=== PATIENT | male | born 1990 ===

== ENCOUNTER 2021-01-26 18:02 | Emergency (ER) | payer SELFPAY ==
[2021-01-26] MEDS ORDERED: SODIUM CHLORIDE 0.9% 1000 ML 1,000 ML IV ONE (18:26)
[2021-01-26] MEDS ORDERED: MORPHINE 4 MG/1 ML INJ IV ONE (18:26)
[2021-01-26] MEDS ORDERED: ONDANSETRON 4 MG/2 ML INJ IV ONE (18:26)
[2021-01-26] MEDS ORDERED: levETIRAcetam 1000 MG/NS 0.75% 1,000 MG/100 ML BAG IV ONE (18:27)
--- NOTE | 2021-01-26 18:32 | Emergency Department Report ---
ED General Adult HPI - General Stated complaint: SEIZURE Time Seen by Provider: 01/26/21 18:25 Source: patient - History of Present Illness Initial comments: Patient is 30 years old male with history of seizure on Keppra however he is out of his Keppra for the last 2 months. Patient brought to the emergency room initially for evaluation of single generalized tonic-clonic seizure. Upon arrival to the ER patient is alert, oriented x3 patient is complaining of right lower quadrant pain that started today. 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 Patient presented with diffuse rash. He stated that the rash started before the injection. - Related Data Allergies Allergy/AdvReac Type Severity Reaction Status Date / Time No Known Allergies Allergy Verified 01/26/21 18:42 ED Review of Systems ROS: Stated complaint: SEIZURE Other details as noted in HPI Comment: All other systems reviewed and negative Constitutional: denies: chills, fever Respiratory: denies: cough, shortness of breath, SOB with exertion, SOB at rest, wheezing Cardiovascular: denies: chest pain, palpitations Gastrointestinal: abdominal pain. denies: nausea, vomiting, diarrhea, con stipation, hematemesis, melena, hematochezia Musculoskeletal: denies: back pain Neurological: denies: headache, weakness, numbness, paresthesias, confusion, abnormal gait Psychiatric: anxiety. denies: auditory hallucinations, visual hallucinations, homicidal thoughts, suicidal thoughts ED Physical Exam - General General appearance: alert, in distress - Head Head exam: Present: atraumatic, normocephalic, normal inspection - Eye Eye exam: Present: normal appearance, PERRL - ENT ENT exam: Present: normal exam - Neck Neck exam: Present: normal inspection, full ROM. Absent: tenderness - Respiratory Respiratory exam: Present: normal lung sounds bilaterally - Cardiovascular Cardiovascular Exam: Present: tachycardia - GI/Abdominal GI/Abdominal exam: Present: soft, tenderness, normal bowel sounds. Absent: distended, guarding, rebound, rigid, organomegaly, mass, bruit, pulsatile mass, hernia - Extremities Exam Extremities exam: Present: full ROM, normal capillary refill. Absent: tenderness - Back Exam Back exam: Absent: CVA tenderness (R), CVA tenderness (L) - Neurological Exam Neurological exam: Present: alert, oriented X3, CN II-XII intact. Absent: motor sensory deficit - Psychiatric Psychiatric exam: Present: anxious - Skin Skin exam: Present: warm, rash ED Course Vital Signs 01/26/21 01/26/21 18:43 20:00 Pulse Rate 89 Respiratory 18 Rate Blood Pressure 107/58 [Left] O2 Sat by Pulse 99 98 Oximetry ED Medical Decision Making - Lab Data Result diagrams: 01/26/21 18:36 01/26/21 18:36 - Radiology Data Radiology results: report reviewed - Medical Decision Making Patient is 30 years old male with history of seizure on Keppra however he is out of his Keppra for the last 2 months. Patient brought to the emergency room initially for evaluation of single generalized tonic-clonic seizure. Upon arrival to the ER patient is alert, oriented x3 patient is complaining of right lower quadrant pain that started today. 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 Patient presented with diffuse rash. He stated that the rash started before the injection. Patient received morphine, Zofran and normal saline. Labs reviewed and showed mild leukocytosis. Patient also received Keppra [address] abdomen and pelvis is unremarkable for acute finding except for lymphadenopathy. Patient given prescription for Keppra and advised to follow-up with his neurologist in the next 2 to 3 days and to return to the ER if he develop any new symptoms. Critical care attestation.: If time is entered above; I have spent that time in minutes in the direct care of this critically ill patient, excluding procedure time. ED Disposition Clinical Impression: Acute abdominal pain, Seizure, Secondary syphilis Disposition: 01 HOME / SELF CARE / HOMELESS Is pt being admited?: No Condition: Stable Instructions: Seizure, Adult, Abdominal Pain, Adult, [id number], Syphilis Referrals: KAILA MCINTYRE MD [Staff Physician] - 3-5 Days
[2021-01-26 18:59] LABS: Basophils % (Auto) 0.3 % (0.0-1.8); Eosinophils # (Auto) 0.1 K/mm3 (0.0-0.4); Eosinophils % (Auto) 0.9 % (0.0-4.3); Hematocrit 47.7 % (35.5-45.6); Hemoglobin 15.5 gm/dl (11.8-15.2); Lymphocytes # (Auto) 1.1 K/mm3 (1.2-5.4); Mean Corpuscular HGB Conc 33 % (32-34); Mean Corpuscular Volume 94 fl (84-94); Monocytes # (Auto) 0.5 K/mm3 (0.0-0.8); Monocytes % (Auto) 4.4 % (0.0-7.3); Platelet Count 265 K/mm3 (140-440); Red Cell Distribution Width 13.8 % (13.2-15.2)
[2021-01-26 19:18] LABS: Alanine Aminotransferase 22 units/L (7-56); Albumin 4.1 g/dL (3.9-5); BUN/Creatinine Ratio 13; Bilirubin,Direct < 0.2 mg/dL (0-0.2); Blood Urea Nitrogen 10 mg/dL (9-20); Calcium 9.4 mg/dL (8.4-10.2); Hemolysis Index 80
--- NOTE | 2021-01-26 21:06 | Cat Scan Report ---
CT ABDOMEN AND PELVIS WITH CONTRAST INDICATION / CLINICAL INFORMATION: Abdominal Pain. TECHNIQUE: Axial CT images were obtained through the abdomen and pelvis after 100 mL Omnipaque [address] scans at this location are performed using CT dose reduction for ALARA by means of automated exposure control. COMPARISON: None available. FINDINGS: LOWER CHEST: 5 mm noncalcified nodule in right middle lobe as seen on series 2 image 24. LIVER: The liver is enlarged measuring 19.3 cm in craniocaudal dimension. GALLBLADDER: No significant abnormality. BILE DUCTS: No significant abnormality. PANCREAS: No significant abnormality. SPLEEN: No significant abnormality. ADRENALS: No significant abnormality. RIGHT KIDNEY / URETER: No significant abnormality. LEFT KIDNEY / URETER: No significant abnormality. STOMACH / SMALL BOWEL: No significant abnormality. COLON: No significant abnormality. APPENDIX: Not visualized. PERITONEUM: No free fluid. No free air. No fluid collection. LYMPH NODES: There are bilateral enlarged inguinal lymph nodes. For example there is a right inguinal lymph node measuring 1.8 x 1.4 cm. There are additional bilateral pelvic sidewall/iliac chain lymph nodes. For example there is a right pelvic sidewall lymph node measuring 3.0 x 1.3 cm on series 2 [place] ge 139. AORTA / ARTERIES: No significant abnormality. IVC / VEINS: No significant abnormality. URINARY BLADDER: No significant abnormality. REPRODUCTIVE ORGANS: No significant abnormality. ADDITIONAL FINDINGS: Small foci of gas in the gluteal muscles of the right buttocks is nonspecific. SKELETAL SYSTEM: No significant abnormality. IMPRESSION: 1. Hepatomegaly. 2. Bilateral inguinal lymph nodes and pelvic lymph nodes are nonspecific. 3. Foci of gas in the right gluteal musculature is nonspecific. Recommend clinical correlation. 4. Single incidental pulmonary nodule(s) in the right middle lobe measuring 5 mm with perifissural/andrade bpleural characteristics. Recommendation according to Fleischner Society 2017 Guidelines: Low Risk or High Risk Patient: No routine follow-up. Signer Name: Star No MD Signed: 01/26/2021 9:02 PM Workstation Name: [id number]
[2021-01-26] MEDS ORDERED: fentaNYL 100 MCG/2 ML INJ IV ONE (21:50)
[2021-01-26 22:32] VITALS: BP 119/72
[2021-01-26 23:28] LABS: Bilirubin,Urine NEG (Negative); Blood,Urine SM (Negative); Color,Urine Yellow (Yellow); Mucus,Urine FEW /HPF; Protein,Urine <15 mg/dL mg/dL (Negative); Urobilinogen,Urine < 2.0 mg/dL (<2.0)
== END 2021-01-26 23:30 | disposition home or self-care (01) ==
LOC: EDSEX → ED 18:02
DX: A51.49 Other secondary syphilitic conditions (principal); R56.9 Unspecified convulsions; R10.31 Right lower quadrant pain
CPT/HCPCS: 36415; 74177; 80048; 80076; 81001; 83690; 85025; 96361; 96374; 96375; 99284; J1953; J2270; J2405; J3010; J7030; Q9967; Q0162